=== PATIENT | male | born 1965 | race Caucasian/White ===

== ENCOUNTER 2019-01-22 06:33 | Day surgery (SDC) | payer BC ==
[2019-01-14 14:05] VITALS: BMI 32.8
[2019-01-22] MEDS ORDERED: TETRACAINE 0.5% OPHTH SOLN 2 ML BOTTLE ONE ×2 (07:06→09:29)
[2019-01-22] MEDS ORDERED: EPI-SHUGARCAINE (EPINEPHRINE 0.025% & LIDOCAINE-PF 0.75%) 4ML ONE ×2 (07:06→09:29)
[2019-01-22] MEDS ORDERED: BACITRACIN/POLYMYXIN OPH OINT 3.5 GM TUBE ONE (07:06)
[2019-01-22] MEDS ORDERED: POVIDONE-IODINE 5% OPHTHALMIC PREP 30 ML SOLUTION ONE ×2 (07:06→09:29)
[2019-01-22] MEDS ORDERED: BETAXOLOL HCL 0.25% OPHTHALMIC 10 ML DROPSBTL ONE (07:06)
[2019-01-22] MEDS ORDERED: NEO/POLYMYX B SULF/DEXAMETH OPHTHALMIC 5ML BOTTLE ONE (07:07)
[2019-01-22] MEDS ORDERED: ACETYLCHOLINE 1:100 INTRA-OCUL 20 MG/2 ML KIT ONE ×2 (07:07→09:29)
[2019-01-22] MEDS ORDERED: EPINEPHrine/PF 1 MG/1 ML (1:1,000) AMPULE ONE (07:07)
[2019-01-22 07:17] VITALS: TEMP 98.2
[2019-01-22] MEDS: OFLOXACIN 0.3% OPHTHALMIC SOLUTION 5 ML BOTTLE OS SCH ×5 (09:00→09:20)
[2019-01-22] MEDS: TROPICAMIDE 1% OPHTH SOLN 15 ML BOTTLE OS SCH ×5 (09:00→09:20)
[2019-01-22] MEDS: KETOROLAC TROMETHAMINE 0.5% EYE DROP 1 DROP DROPS OS SCH ×4 (09:00→09:15)
[2019-01-22] MEDS: CYCLOPENTOLATE HCL 1% OPHTH SOLN 2 ML BOTTLE OS SCH ×5 (09:00→09:20)
[2019-01-22] MEDS: PHENYLEPHRINE 2.5% OPHTH SOLN 15 ML BOTTLE OS SCH ×5 (09:00→09:20)
[2019-01-22] MEDS ORDERED: CYCLOPENTOLATE HCL 1% OPHTH SOLN 2 ML BOTTLE ONE (09:06)
[2019-01-22] MEDS ORDERED: KETOROLAC TROMETHAMINE 0.5% EYE DROP 1 DROP DROPS ONE (09:06)
[2019-01-22] MEDS ORDERED: OFLOXACIN 0.3% OPHTHALMIC SOLUTION 5 ML BOTTLE ONE (09:06)
[2019-01-22] MEDS ORDERED: PHENYLEPHRINE 2.5% OPHTH SOLN 15 ML BOTTLE ONE (09:07)
[2019-01-22] MEDS ORDERED: TROPICAMIDE 1% OPHTH SOLN 15 ML BOTTLE ONE (09:07)
[2019-01-22] MEDS ORDERED: MIDAZOLAM HCL 2 MG/2 ML SINGLE DOSE VIAL ONE (09:38)
[2019-01-22] MEDS ORDERED: ACETAMINOPHEN 325 MG TABLET (FP) PO PRN ×2 (10:50→13:05)
[2019-01-22 11:36] VITALS: BP 129/79; PULSE 64
[2019-01-22] MEDS ORDERED: ONDANSETRON 4 MG/2 ML VIAL IVPUSH PRN (13:05)
[2019-01-22] MEDS ORDERED: LACTATED RINGERS SOLUTION 1,000 ML IV SCH (13:15)
--- NOTE | 2019-01-22 21:54 | OP ---
DATE OF OPERATION: 01/22/2019 PREOPERATIVE DIAGNOSIS: Cataract, left eye. POSTOPERATIVE DIAGNOSIS: Cataract, left eye. PROCEDURE: Cataract extraction via phacoemulsification with insertion of posterior chamber lens implant, left eye. SURGEON: Guy Scales MD GRAIN SACKER: Mariana Judd MD ANESTHESIA: Topical with sedation. ESTIMATED BLOOD LOSS: Less than 1 mL. COMPLICATIONS: None. SPECIMENS: None. PROCEDURE: The patient was identified in the holding area. After all risks, benefits, and alternatives were explained to the patient, informed consent was obtained. The left eye was marked with a marking pen. The patient then entered the operating room on an eye stretcher. After a formal timeout was performed, topical tetracaine eye drops were instilled onto the left eye. The patient was then asked to sit up and look straight ahead. The cardinal axis of astigmatism was marked onto the patient's left eye using a toric bubble marker and a marking pen. The patient was then instructed to sit back down, and the left eye was then prepped and draped in the usual sterile fashion. An eyelid speculum was placed beneath the eyelids of the left eye. The axis of astigmatism was then marked onto the cornea, which was noted to be 140 degrees. We used a toric dial and a toric marking pen for that step of the procedure. An infratemporal paracentesis incision was created using a 15-degree blade. Topical preservative-free epinephrine and preservative-free lidocaine was then injected into the anterior chamber. Viscoelastic was injected into the anterior chamber. A 2.4 mm keratome blade was then used to make a superotemporal incision. A 360-degree continuous curvilinear capsulorhexis was then created using bent cystotome and Utrata forceps. Hydrodissection was performed using balanced saline solution on a cannula. Phacoemulsification was introduced to disassemble and remove the nucleus in its entirety. Irrigation/aspiration was then used to remove any remaining cortical material from the eye. The capsular bag was reformed using viscoelastic. An Shine model SV25T3 with a power of 19.5 diopters, serial number [id number] was inspected and found to be defect-free and injected into the capsular bag. Irrigation/aspiration was then used to remove any remaining viscoelastic from the eye. Then the viscoelastic from posterior to the optic was removed. Then, the anterior chamber was reformed using balanced saline solution. Then, the intraocular lens was rotated so that the axis of astigmatism on the optic matched the axis of the astigmatism of the cornea, which was noted to be 140 degrees. Then, intracameral injections of Miochol was then administered, and the pupil came down and was round. All wounds were hydrated with balanced saline solution and noted to be watertight. The patient was then instructed to look at the microscope light, and the Purkinje images were observed and noticed to be perfectly centered on the central ring of the optic. Once the lens was perfectly centered, all wounds were again hydrated with balanced saline solution and noted to be watertight. Topical antibiotic eye drops and ointment were then administered to the eye after it was confirmed that the anterior chamber was deep, there was a red reflex present, and the eye had adequate pressure, and the lens, again, was perfectly centered in the capsular bag. The eyelid speculum was removed from the left eye. The left eye was shielded. The patient tolerated the procedure well and left the operating room in stable condition to follow up in the eye clinic tomorrow morning at 10:00. GUY SCALES M.D. [id number]
== END 2019-01-22 11:30 | disposition home or self-care (01) ==
LOC: FASU 06:33
PROVIDERS: ATTEND Ophthalmology
PROC: 08RK3JZ Replacement of Left Lens with Synthetic Substitute, Percutaneous Approach (ICD-10-PCS; principal; 2019-01-22 10:01)
DX: H26.9 Unspecified cataract (principal)